=== PATIENT | male | born 1960 | race Caucasian/White ===

== ENCOUNTER 2016-08-01 11:02 | Emergency (ER) | payer OTHER ==
[~2016-08-01] VITALS: Ht 160 cm; Wt 70.3 kg
[2016-08-01 11:10] VITALS: BP 106/64
== END 2016-08-01 12:08 | disposition home or self-care (01) ==
LOC: ER 11:06
DX: J06.9 Acute upper respiratory infection, unspecified (principal); E11.9 Type 2 diabetes mellitus without complications; I10 Essential (primary) hypertension
CPT/HCPCS: 71010; 99283; A4606; Z7610